=== PATIENT | female | born 1980 | race Caucasian/White ===

== ENCOUNTER 2023-09-05 08:36 | Emergency (ER) | payer OTHER, SELFPAY ==
--- NOTE | ~2023-09-05 | XR_ITS ---
XR knee LT min 4V 09/05/2023 09:05 Indication: Left knee pain Procedure: 4 views left knee Comparison: 09/22/2014 Findings: Moderate osteoarthritis of the left knee. No fracture or traumatic malalignment. No joint e ffusion. No foreign bodies. Impression: 1: Moderate osteoarthritis of the left knee. Reviewed, dictated and finalized at location B. Impression: 1: Moderate osteoarthritis of the left knee.
--- NOTE | 2023-09-05 08:43 | ED.LOWEXIN ---
HPI - Extremity Injury (Lower) General Chief Complaint: Extremity Injury, Lower Stated Complaint: lt knee pain Time Seen by Provider: 09/05/23 09:19 Source: patient and RN notes reviewed Mode of arrival: ambulatory Limitations: no limitations History of Present Illness HPI Narrative: 43-year-old female presents with concern for left knee pain. Reports 3 weeks ago she twisted the knee during a kickball game. Reports it started to feel slightly better and then she went white water rafting in the pain returned. She reports pain at rest, worsening pain when she goes to stand up in his weight-bearing. She reports pain that wakes her up at night. She has been taking 100 mg ibuprofen twice daily and a 1000 mg ibuprofen twice daily. She has been using ice. MD complaint: knee injury Related Data Allergies Allergy/AdvReac Type Severity Reaction Status Date / Time No Known Allergies Allergy Verified 09/05/23 08:38 Review of Systems Review of Systems: CONSTITUTIONAL: Denies malaise, chills, sweats, or fever. CARDIOVASCULAR: Denies chest pain, palpitations, or edema. RESPIRATORY: Denies cough or dyspnea. SKIN: Denies rash or itching, bruising, redness MUSCULOSKELETAL: Reports left knee pain and swelling NEUROLOGIC: Denies numbness, weakness All systems reviewed & are unremarkable except as noted in HPI and below PMFSH Family History Family History (Updated 11/28/13 @ 07:13 by DOCTOR UNKNOWN) Mother Family history of mental disorder Sibling Family history of mental disorder Father Carcinoma of colon Grandparent Carcinoma of colon Family history of lung cancer Family history of dementia Family history of heart disease in male family member before age 55 Social History Social History Smoking status: Never smoker Second hand tobacco smoke exposure: No Alcohol intake: current Comments At time of signature, agree with nursing past medical, surgical, social and family history. There is no relevant family history pertinent to the presenting complaint Exam Narrative: GENERAL: Well-appearing, well-nourished, and in no acute distress. HEAD: Normocephalic, atraumatic. EYES: PERRLA, conjunctivae clear NECK: Supple. CHEST: Speaks in full sentences. No respiratory distress. HEART: Regular rate and rhythm. Normal and equal peripheral pulses. EXTREMITIES: Left knee has gross normal range of motion. No edema or ecchymosis. Lateral tenderness. No open wounds, no skin tenting, no devitalized tissue or atrophy, no trophic changes, no obvious deformity, alignment normal, nearby joints and structures intact. Distal pulses palpable and equal bilaterally, skin warm, dry, pink. Capillary refill less than 3 seconds. SKIN: Warm, dry, no rash. NEURO: Alert and oriented x3. PSYCH: Normal mood and affect Course Course Emergency Course: Patient is aware of diagnosis, understands and agrees to treatment plan. Anticipatory guidance given. Patient agrees to follow-up as directed and is aware of reasons to seek care at the emergency department. Portions of this record may have been created with voice recognition software Level of Care: Express Care Visit Vital Signs Vital signs: Reviewed. MDM - Extremity Injury (Lower) MDM Narrative Medical decision making narrative: Patients injury and pain is consistent with musculoskeletal etiology. No signs of neurological or vascular compromise on exam. Compartments and tissues are soft without signs of compartment syndrome. Pain is felt appropriate for further evaluation on an outpatient basis. Imaging Data My impression: Images reviewed, interpreted by radiologist, agree, see report. Radiologist's impression: XR knee LT min 4V 09/05/2023 09:05 Indication: Left knee pain Procedure: 4 views left knee Comparison: 09/22/2014 Findings: Moderate osteoarthritis of the left knee. No fracture or traumatic malalignment. No joint effusion. No foreign bodies. Impression:
[2023-09-05 08:49] VITALS: BP 116/51; PULSE 81; RESP 16; TEMP 36.7; O2SAT 99
== END 2023-09-05 09:29 | disposition home or self-care (01) ==
PROVIDERS: Emergency Provider Nurse Practitioner; PCP Family Medicine
DX: S89.92XA Unspecified injury of left lower leg, initial encounter (principal); X50.9XXA Other and unspecified overexertion or strenuous movements or postures, initial encounter; Y93.6A Activity, physical games generally associated with school recess, summer camp and children; Z86.16 Personal history of COVID-19
CPT/HCPCS: 73564; 99213; G0463

== ENCOUNTER 2024-06-07 08:00 | Emergency (ER) | payer OTHER, SELFPAY ==
--- NOTE | 2024-06-07 08:04 | ED_ITS ---
HPI - Nausea/Vomiting/Diarrhea General Chief complaint: Back Pain/Injury Stated complaint: vomiting and diarrhea;back pain Time Seen by Provider: 06/07/24 08:04 Source: patient Mode of arrival: ambulatory Limitations: no limitations History of Present Illness HPI Narrative: Patient is a 44-year-old female who presents with vomiting and diarrhea yesterday, hot and cold chills, body aches and back pain. Patient has not had any vomiting or diarrhea today. Has not taken a temperature. Denies congestion, sore throat, ear pain, cough. Has not taken anything for symptoms. Related Data Allergies Allergy/AdvReac Type Severity Reaction Status Date / Time No Known Allergies Allergy Verified 06/07/24 08:11 Review of Systems Review of Systems: All systems reviewed & are unremarkable except as noted in HPI and below Constitutional: Constitutional: Reports chills, Denies fatigue, Denies fever(s), Denies headache(s), Denies malaise and Denies weakness Eyes: Eyes: Denies blurry vision, Denies itchy eyes and Denies loss of vision ENT: Denies otalgia, Denies headache(s), Denies nasal congestion, Denies sinus pain and Denies sore throat Cardiovascular: Cardiovascular: Denies chest pain, Denies irregular heart rhythm and Denies dyspnea Respiratory: Respiratory: Denies cough and Denies dyspnea Gastrointestinal: Gastrointestinal: Denies abdominal pain, Reports diarrhea, R eports nausea and Reports vomiting Musculoskeletal: Musculoskeletal: Reports back pain, Reports myalgias and Denies arthralgias Integumentary/Breasts: Skin/Breast: Denies pruritus and Denies rash Neurologic: Denies headache(s), Denies loss of vision and Denies weakness Psychiatric: Psychiatric: Reports no additional psychiatric complaints Endocrine: Endocrine: Denies fatigue Allergic/Immunologic: Allergic/Immunologic: Denies itchy eyes PMFSH Family History Family History Mother Family history of mental disorder Sibling Family history of mental disorder Father Carcinoma of colon Grandparent Carcinoma of colon Family history of lung cancer Family history of dementia Family history of heart disease in male family member before age 55 Social History Social History Smoking status: Never smoker Second hand tobacco smoke exposure: No Alcohol intake: current Comments At time of signature, agree with nursing past medical, surgical, social and family history. There is no relevant family history pertinent to the presenting complaint. Exam Const: General: cooperative, healthy appearing, comfortable, no acute distress and well nourished Nutritional Appearance: well nourished Orientation/consciousness: patient oriented x3 Limitations: no limitations HENMT: Head: normal to inspection, normocephalic and atraumatic Ears: heari ng grossly normal bilaterally, external ears normal, TM's normal bilaterally, EAC's normal and no periauricular adenopathy Face/Nose/Sinus: Normal external nose present, Normal nasal mucous membranes and turbinates present, normal facial exam, sinuses nontender and face symmetric Face and sinus: normal facial exam, sinuses nontender and face symmetric Mouth: Yes Normal oral and palatal mucosa present, Yes lip normal, Yes tongue normal, Yes Normal salivary glands and ducts present, Yes oropharynx normal and Yes moist mucous membranes Teeth and gingiva: dentition normal Throat: posterior oropharynx normal, tonsils normal and uvula midline Eyes: General: appearance normal, both eyes and all related structures Alignment and Position: alignment normal and position normal Periorbital: periorbital findings normal Eyelids: eyelids normal Pupils: Equal, round and reactive pupils present Neck: Neck: normal visual inspection, full ROM, no lymphadenopathy and supple Chest: Chest palpation & inspection: normal inspection of the chest and normal palpation of entire chest wall Resp: Effort & Inspection: normal respiratory effort and able to speak in complete sentences Auscultation: clear to auscultation bilaterally, no crackles, no rales, no rhonchi and no wheezes Cardio: Rate: regular rate Rhythm: regular rhythm Heart sounds: S1 normal heart sound present and S2 normal heart sound present GI: Inspection: normal to inspection GI Palp: No abdominal tenderness and Yes Soft to palpation Auscultation: normal bowel sounds Skin: General skin exam: normal color and no rashes or lesions noted Neuro: General: patient oriented x3 and moves all extremities Cranial nerves: Yes Equal, round and reactive pupils present Speech: normal speech Gait exam (Neuro): Normal gait present Extrem: General: normal to inspection, full ROM and no edema Psych: Appearance: grossly normal and well kempt Mental Status: mental status grossly normal Speech and movement: Normal speech and movement present Affect: normal affect Attitude: cooperative Thought process: Normal thought process present Course Course Emergency Course: Discharge instructions reviewed with patient, as well as provided in writing per nursing staff. The instructions also include specific and strict return/GO TO THE ER as well as f/u information. All questions have been answered, and the patient deny any further questions with discharge and discharge plan. Portions of this record may have been created with voice recognition software Level of Care: Express Care Visit Vital Signs Vital signs: Vital Signs Temperature 36.7 C 06/07/24 08:14 Pulse Rate 100 06/07/24 08:14 Respiratory Rate 20 06/07/24 08:14 Blood Pressure 111/70 06/07/24 08:14 Pulse Oximetry 99 06/07/24 08:14 Oxygen Delivery Room Air 06/07/24 08:14 Temperature 36.7 C 06/07/24 08:14 Pulse Rate 100 06/07/24 08:14 Respiratory Rate 20 06/07/24 08:14 Blood Pressure 111/70 06/07/24 08:14 Pulse Oximetry 99 06/07/24 08:14 Oxygen Delivery Room Air 06/07/24 08:14 Reviewed MDM - Nausea/Vomiting/Diarrhea MDM Narrative Medical decision making narrative: Pt well hydrated appearing, in no respiratory distress, hemodynamically stable. Recommend supportive care. The patient is stable at time of discharge the clinical impression was discussed and the patient was given the opportunity to ask questions, which were addressed as completely as possible given the information available at present. Anticipatory guidance and return to care precautions were discussed and the importance of primary care follow-up was stressed and encouraged. The patient voiced understanding of the plan, indications to return, and the need for follow-up. Exam findings show no acute concerns or changes Patient is appropriate for outpatient treatment and follow-up. Differential Diagnosis Differential diagnosis: Likely traveler's diarrhea, food poisoning, gastroenteritis, clostridium difficile infection, drug-induced nausea and vomiting, dehydration and other (COVID, influenza) Medical Records Attestation: I reviewed the patient's medical records. Lab Data Attestation: I reviewed the patient's lab results. Labs: Lab Results 06/07/24 Range/Units 08:36 POC Influenza A Ag Negative (Negative) POC Influenza B Ag Negative (Negative) POC SARS CoV-2 Ag Negative (Negative) Discharge Plan Discharge Clinical Impression: Gastroenteritis Patient Disposition: Home, Self-Care Condition: Stable Instructions: Gastroenteritis (ED) Additional Instructions: Stay hydrated. Take small sips of fluid containing electrolytes frequently(Body [place], Gatorade, Powerade, liquid IV). Eat small meals that her very bland including bananas, applesauce, rice, toast, boiled or grilled chicken, soup. Do not eat anything fried, spicy or overly acidic. For pain, you may take: Tylenol 650-1000mg by mouth every 4-6 hours. Do not exceed 4000mg in 24 hours. Advil (Ibuprofen) 600 mg by mouth every 6 hours. Do not exceed 2400mg in 24 hours. 8 AM: Tylenol 11 AM: Ibuprofen 2 PM: Tylenol 5 PM: Ibuprofen 8 PM: Tylenol 11 PM: Ibuprofen 2 AM: Tylenol 5 AM: Ibuprofen You should go to the hospital if you experience return of persistent nausea and vomiting that does not resolve and does not allow you to tolerate any food or fluids, persistent fevers for greater than 2-3 more days, increasing abdominal pain that persists despite medications, persistent diarrhea, dizziness, syncope (fainting), or for any other concerns. Patient Language: [place] Prescriptions: New ondansetron 4 mg tablet,disintegrating 4 mg PO Q6-8H PRN (Reason: nausea and vomiting) Qty: 7 0RF No Action ibuprofen 800 mg tablet 800 mg PO Q6H PRN (Reason: pain) Qty: 30 0RF Follow-up/Referrals: Ciro,MD Kaylin [Primary Care Provider] - 3 Days Stand Alone Forms: Work/School Release IP Time of Disposition: 08:50
--- OUTSIDE RECORDS SUMMARY | 2024-06-07 08:08 | XMS_ITS | Clinical Summary ---
Author Organization [facility] Address [address] [place] [address] Care Team Providers Care Linux Solaris Administrator Name Role Phone Kaylin Tanner MD Primary Care Provider Allergies No known active allergies Medications LORazepam (ATIVAN) 1 MG tablet Take 1 mg by mouth every 6 (six) hours as needed for Anxiety. Active traZODone (DESYREL) 100 MG tablet Take 100 mg by mouth nightly at bedtime. Active methylphenidate CR (CONCERTA) 36 MG tablet Take 36 mg by mouth every morning. Active benzonatate (TESSALON) 100 MG capsule Take 1 capsule (100 mg total) by mouth 2 (two) times daily as needed. 4 Active ondansetron (ZOFRAN-ODT) 4 MG disintegrating tablet Take 1 tablet (4 mg total) by mouth every 8 (eight) hours as needed for Nausea. 20 tablet 4 Active Social History Tobacco Use Types Packs/Day Years Used Date Smoking Tobacco: Never Smokeless Tobacco: Never Tobacco Cessation:Counseling Given: Not Answered Alcohol Use Standard Drinks/Week Comments Not Currently 0 (1 standard drink = 0.6 oz pur e alcohol) Comments Unknown Sex and Gender Information Value Date Recorded Sex Assigned at Not on file Legal Sex Female 8:34 PM CDT Gender Identity Not on file Sexual Orientation Not on file Last Filed Vital Signs Vital Sign Reading Time Taken Comments Blood Pressure 107/59 05/02/2023 9:51 AM COOLING SYSTEM OPERATOR Pulse 63 05/02/2023 9:51 AM COOLING SYSTEM OPERATOR Temperature 36.8 C (98.2 F) 05/02/2023 9:51 AM COOLING SYSTEM OPERATOR Respiratory Rate 18 05/02/2023 9:51 AM COOLING SYSTEM OPERATOR Oxygen Saturation 100% 05/02/2023 9:51 AM COOLING SYSTEM OPERATOR Inhaled Oxygen Concentration - - Weight 113.4 kg (250 lb) 05/02/2023 8:32 AM COOLING SYSTEM OPERATOR Height 175.3 cm (5' 9 ) 05/02/2023 8:32 AM COOLING SYSTEM OPERATOR Body Mass Index 36.92 05/02/2023 8:32 AM COOLING SYSTEM OPERATOR Plan of Treatment Health Maintenance Due Date Last Done Comments Colorectal Cancer Screening Colonoscopy (10 Years) 1979 Annual Physical 1982 Hepatitis C 1997 Cervical Cancer Screening Pap with HPV Testing (Age 30 to 64) Every 5 Years 2009 Mammogram Screening 2019 COVID-19 Vaccine ( season) 2023 06/21/2021, 07/29/2020, 07/08/2020 Influenza Adult (#1) 2024 02/06/2019, 01/15/2017, 01/14/2017, Additional history exists PHQ-2 (Physician [place]) 04/03/2024 Cervical Cancer Screening Pap Smear (Age 30 to 64) Every 3 Years 03/11/2025 03/11/2022 Cervical Cancer Screening with HPV 03/11/2025 DTaP, Tdap and Td Vaccines (3 - Td or Tdap) 02/06/2029 02/06/2019, 11/08/2011, 09/17/2001 Meningococcal Vaccine Aged Out 03/16/2001 No fredy jay eligible based on patient's age to complete this topic Hepatitis B Vaccines Completed 05/20/2010, 03/06/2008, 01/29/2008 HPV Vaccines Aged Out No longer eligi ble based on patient's age to complete this topic Meningococcal B Vaccine Aged Out No l onger eligible based on patient's age to complete this topic Pneumococcal Vaccine: Pediatrics (0 to 5 Years) and At-Risk Patients (6 to 64 Years) Aged Out No longer eligible based on patient's age to complete this topic RSV Immunizations Under 20 Months Aged Out No longer eligible based on patient's age to complete this topic Insurance Care Teams Linux Solaris Administrator Relationship Specialty Start Date End Date Kaylin Tanner MD [address] [facility] [address] [place] [address] PCP - General FAMILY PRACTICE 12/13/21
--- OUTSIDE RECORDS SUMMARY | 2024-06-07 08:09 | XMS_ITS | Clinical Summary ---
Author Organization [facility] Address [address] [place] [address] Care Team Providers Care Customs Inspector Name Role Phone Unavailable Primary Care Provider Unavailabl e Social History Tobacco Use Types Packs/Day Years Used Date Smoking Tobacco: Never Assessed Comments Unknown Sex and Gender Information Value Date Recorded Sex Assigned at Not on file Legal Sex Female 12:03 PM CDT Gender Identity Not on file Sexual Orientation Not on file Plan of Treatment Health Maintenance Due Date Last Done Comments Hepatitis C Virus (HCV) Screening 1979 Hepatitis B Immunization (1 of 3 - 19+ 3-dose series) 1998 Pap Smear 02/27/2000 Cervical Cancer Screening (CCS) 2009 HPV/Cotest 2009 Discussion re Starting/Frequ ency of Mammograms 2019 Influenza Immunization (#1) 2023 02/06/2019 SARS-COV-2 Immunization ( season) 2023 Colonoscopy 02/27/2024 Colorectal Cancer Screening 02/27/2024 Respiratory Syncytial Virus (RSV) Immunization (Adult) (1 - 1-dose 75+ series) 2054 DTaP/Tdap/Td Immunization Discontinued 02/06/2019 TdaP Immunization Completed 02/06/2019 Meningococcal Immunization (ACWY) Aged Out No longer eligible based on patient's age to complete this topic Pneumococcal Immunization Combined Aged Out No longer eligible b ased on patient's age to complete this topic Rotavirus Immunization Aged Out No lo nger eligible based on patient's age to complete this topic
--- OUTSIDE RECORDS SUMMARY | 2024-06-07 08:09 | XMS_ITS | Encounter Summary ---
Author Organization [facility] Address [address] [place] [address] Care Team Providers Care Supervisor Residential Name Role Phone Unavailable Primary Care Provider Unavailabl e Encounter Details Date Type Department Care Team (Late st Contact Info) Description 06/05/2024 External Device Data [facility] ABSTRACTION Provider, Abstract NO ADDRESS ON FILE Social History Tobacco Use Types Packs/Day Years Used Date Smoking Tobacco: Unknown Passive Smoke Exposure: Never Alcohol Use Standard Drinks/Week Comments Yes 5 (1 standard drink = 0.6 oz pur e alcohol) Feeling Safe Answer Date Recorded Are you in a relationship wi th someone who hurts you emotionally and/or physically? Patient unable to answer 10/18/2023 Food Insecurity Answer Date Recorded Social/Environmental Concerns No concerns Transportation Needs Answer Date Record ed Social/Environmental Concerns No concerns Housing Stability Answer Date Recorded Social/Environmental Concerns No concerns Utility Needs Answer Date Recorded Social/Environmental Concerns No concerns Comments No Sex and Gender Information Value Date Recorded Sex Assigned at Not on file Legal Sex Female 2:13 PM CDT Gender Identity Not on file Sexual Orientation Not on file documented as of this encounter Plan of Treatment Not on file documented as of this encounter Visit Diagnoses Not on filedocumented in this encounter
--- OUTSIDE RECORDS SUMMARY | 2024-06-07 08:09 | XMS_ITS | Clinical Summary ---
Author Organization [facility] Address [address] [place] [address] Care Team Providers Care Manager Distribution Name Role Phone Unavailable Primary Care Provider Unavailabl e Medications oxyCODONE (ROXICODONE) 5 mg tabletIndicatio ns:Acute medial meniscus tear of left knee, initial encounter Take 1 Tablet (5 mg) by mouth every 4 hours as needed for Pain. Max Daily Amount: 30 mg 18 Tablet 10/18/2023 9:27 AM CDT 10/18/2023 Active aspirin (ECOTRIN EC) 325 mg Tablet, Delayed Release (E.C.) Take 1 Tablet (325 mg) by mouth daily. 42 Tablet 10/18/2023 9:27 AM CDT 10/18/2023 Active ondansetron (Zofran) 4 mg Tablet Take 1 Tablet (4 mg) by mouth every 8 hours as needed for Nausea/Vomit ing. 30 Tablet 10/18/2023 9:27 AM CDT 10/18/2023 Active docusate sodium (Dulcolax Stool Softener, dss,) 100 mg capsule Take 1 Capsule (100 mg) by mouth 2 times daily. 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 Ancillary Procedure [facility] [address] [facility] [address] [place] [id number] Ion Guevara MD Right knee pain, unspecified chronicity 04/15/2024 10:30 AM HOT SAW OPERATOR Office Visit [facility] [id number] [place] [address] [address] [place] [address] Ion Guevara MD Right knee pain, unspecified chronicity (Primary Dx) 03/15/[address] [place] [address] Ion Guevara MD Referral for Right Knee (Patient has been seen for the Left knee before, and now has a referral for the Right knee and is requesting a call back to schedule the appointment. Her number is [phone]) from Last 3 Months Social History Tobacco Use Types Packs/Day Years Used Date Smoking Tobacco: Unknown Passive Smoke Exposure: Never Tobacco Cessation:Counseling Given: Yes Alcohol Use Standard Drinks/Week Comments Yes 5 [...] Sign Reading Time Taken Comments Blood Pressure 126/78 10/18/2023 9:30 AM CDT Pulse 75 10/18/2023 9:30 AM CDT Temperature 36.7 C (98 F) 10/18/2023 9:30 AM CDT Respiratory Rate 22 10/18/2023 9:30 AM CDT Oxygen Saturation 93% 10/18/2023 9:30 AM CDT Inhaled Oxygen Concentration - - Weight 115.7 kg (255 lb) 10/18/2023 7:15 AM CDT Height 175.3 cm (5' 9 ) 10/18/2023 7:15 AM CDT Body Mass Index 37.66 10/18/2023 7:15 AM CDT Plan of Treatment Health Maintenance Due Date Last Done Comments DIABETES ANNUAL FOOT EXAM 1997 DIABETES MICROALBUMIN ANNUAL SCREEN 1997 LDL CHOLESTEROL ANNUAL 1997 HEPATITIS B VACCINES (1 of 3 - 19+ 3-dose series) 1998 05/20/2010, 03/06/2008, 01/29/2008 DIABETES ANNUAL RETINAL EXAM 07/17/2010 07/17/2009, 07/15/2008, 05/14/2008, Additional history exists BREAST CANCER SCREENING 12/27/2022 12/27/2021, 11/25 COLORECTAL SCREENING 02/27/2024 Colorectal Cancer Screening 02/27/2024 FIT-DNA Q 3 years 02/27/2024 FIT/FOBT Q 1 year 02/27/2024 Flex Sig/CT Colonography Q 5 years 02/27/2024 DIABETES HBA1C Q 6 MONTHS 07/05/2024 01/05/2024 CERVICAL CANCER SCREENING 03/11/2025 03/11/2022 DTAP/TDAP/TD VACCINES (3 - Td or Tdap) 02/06/2029 02/06/2019, 11/08/2011 INFLUENZA VACCINE Completed 03/06/2024, , 02/06/2019, Additional history exists HPV VACCINES Aged Out No longer eligi ble based on patient's age to complete this topic Medical Devices Implanted Type Area Nursing Home Assistant Administrator Device Identifier Shelf Expiration Date Model / Serial / Lot Nexplanon-Left Procedures Procedure Name Priority Date/Time Associated Diagnosis Comments XR KNEE 4+ VW RIGHT Routine 04/15/2024 1 0:44 AM HOT SAW OPERATOR Right knee pain, unspecified chronicity from Last 3 Months Results * XR KNEE 4+ VW RIGHT (04/15/2024 10:44 AM HOT SAW OPERATOR) Anatomical Region Laterality Modality Lower Extremity Computed Radiogr aphy 04/15/2024 10:4 4 AM HOT SAW OPERATOR Narrative 04/15/2024 12:39 PM HOT SAW OPERATOR EXAMINATION: XR KNEE 4+ VW RIGHT, 3 view left knee DATE: 04/15/2024 10:44 AM HISTORY: Right knee pain COMPARISON: Radiograph dated 10/12/2023 FINDINGS: There is mild narrowing of the medial compartment bilaterally Tricompartmental osteophytes are again seen bilaterally. There is no acute fracture. There is moderate right knee joint effusion. DICTATION LOCATION: Location [address] [place] [address] Procedure Note Cleveland Chou MD - 04/15/2024 EXAMINATION: XR KNEE 4+ VW RIGHT, 3 view left knee DATE: 04/15/2024 10:44 AM HISTORY: Right knee pain COMPARISON: Radiograph dated 10/12/2023 FINDINGS: There is mild narrowing of the medial compartment bilaterally Tricompartmental osteophytes are again seen bilaterally. There is no acute fracture. There is moderate right knee joint effusion. DICTATION LOCATION: Location [address] [place] [address] Ion Guevara MD DIAGNOSTIC IMAGING ORDERABLES Final Result from Last 3 Months Insurance [employer] For more information, please contact: [phone] * Full Code (Latest Code Status on File) Date Activated Date Inactivated Comments 10/18/2023 6:57 AM 10/18/2023 12:08 PM
--- OUTSIDE RECORDS SUMMARY | 2024-06-07 08:09 | XMS_ITS | Clinical Summary ---
Author Organization [address] Address [address] [id number] Care Team Providers Care Client Services Vice President Name Role Phone Kaylin Tanner MD Primary Care Provi josefina Allergies No known active allergies Medications LORazepam (ATIVAN) 1 mg tablet Take 1 tablet (1 mg total) by mouth 3 (three) times a day as needed 09/06/2021 Active clomiPRAMINE (ANAFRANIL) 25 mg capsule 02/16/2024 Active ergocalciferol (VITAMIN D) 50,000 unit capsule 12/28/2023 Active methylphenidate ER (CONCERTA) 54 mg CR tablet Take 1 tablet (54 mg total) by mouth every morning 02/15/2024 Active ibuprofen (ADVIL,MOTRIN) 600 mg tabletIndicatio ns:Acute pain of right knee Take 1 tablet (600 mg total) by mouth every 8 (eight) hours as needed for pain (pain) 30 tablet 1 03/06/2024 Active Active Problems Problem Noted Date Diagnosed Date Microcytic anemia 05/10/2022 Acute pancreatitis after end oscopic retrograde cholangiopancreatography (ERCP) 05/05/2022 Assessment & Plan (05/16/2022 8:58 AM MINING ANALYST): Discharge summary, CBC, CMP, iron panel reviewed from her hospital stay Well adult exam 09/14/2021 Overview (09/14/2021): Encouraged a healthy diet, and regular physical activity to her level Wear sun screen, seat belts No texting/drinking and driving Health Maintenance: Last PAP: 04/2017-neg Last mammogram:ordered Last Tdap: up to date Last Flu: encouraged Last COVID: up to date Assessment & Plan (09/14/2021 10:06 AM CDT): Encouraged a healthy diet, and regular physical activity to her level Wear sun screen, seat belts No texting/drinking and driving Health Maintenance: Last PAP: 04/2017-neg Last mammogram:ordered Last Tdap: up to date Last Flu: encouraged Last COVID: up to date Grief 09/14/2021 Assessment & Plan (09/14/2021 10:01 AM CDT): With the loss of her partner Continue to follow with her psychiatrist and psychologist Continue her current regimen for now I encouraged her to look at a support group for survivors of suicide-she can look at the [facility] or online I will check in on her in 1 week Update me with any questions or concerns Class 2 obesity due to exces s calories with body mass index (BMI) of 36.0 to 36.9 in adult 09/14/2021 Assessment & Plan (03/06/2024 10:34 AM MINING ANALYST): Chronic, improving BMI Follow-up includes: nutrition counseling. Assessment & Plan (09/14/2023 10:34 AM CDT): BMI Follow-up includes: exercise counseling and education provided. Assessment & Plan (05/16/2022 8:45 AM MINING ANALYST): BMI Follow-up includes: nutrition counseling. Assessment & Plan (09/14/2021 10:02 AM CDT): BMI Follow-up includes: nutrition counseling. Severe episode of recurrent major depressive disorder, without psychotic features 11/19/2019 Assessment & Plan (05/16/2022 8:57 AM MINING ANALYST): Chronic, both side effect now of muscle twitching/movement changes Reviewed that this could be a possible side effect of her Rexulti I have encouraged her to call her psychiatrist. She may come off the medication or have a medication added to her regimen to help with his possible side effect Update me after she talks to her psychiatrist Call for questions or concerns Assessment & Plan (09/14/2021 9:55 AM CDT): No thoughts of self-harm Continue new to follow with her psychiatrist Continue to follow with her psychologist Continue her current regimen Update me with any changes or concerns Call for questions Assessment & Plan (11/19/2019 3:21 PM CDT): Stable Continue current regimen New referral placed Call for questions or concerns Anxiety 11/19/2019 Assessment & Plan (09/14/2021 9:54 AM CDT): Continue new to follow with her psychiatrist Continue to follow with her psychologist Continue her current regimen Update me with any changes or concerns Call for questions Assessment & Plan (11/19/2019 3:20 PM CDT): Stable Continue current regimen New referral placed Call for questions or concerns Attention deficit disorder (ADD) without hyperac tivity 11/19/2019 Assessment & Plan (09/14/2021 9:55 AM CDT): Continue to follow with her psychiatrist Continue her current regimen Assessment & Plan (11/19/2019 3:21 PM CDT): Stable Continue current regimen New referral placed Call for questions or concerns Dysfunctional uterine bleeding 11/27/2017 Migraine 05/10/2016 Resolved Problems Problem Noted Date Diagnosed Date Resolved Date Transaminitis 04/29/2022 12/14/2022 Calculus of gallbladder with out cholecystitis without obstruction 04/29/2022 12/14/2022 Acute cystitis without hematuria 04/28/2022 12/14/2022 Abdominal pain 04/28/2022 12/14/2022 Choledocholithiasis 04/28/2022 12/15/19 23 Overview (04/29/2022): Added automatically from request for surgery [id number] Colitis 12/14/2022 Encounters Date Type Department Care Team Description 04/02/2024 Telephone [facility] Family Medicine [address] [phone] Kaylin Tanner MD Referral Request 03/14/2024 Orders Only [facility] Obstetrical Gynecology [address] [place] [phone] Esperanza Martin MD from Last 3 Months Immunizations Immunization Administration Dates Next Due Anthrax 03/02/2005 Flucelvax Influenza Quad 02/06/2019 Hep A, Adult 09/17/2001,03/16/2001 Hep B Vaccine 05/20/2010,03/06/2008,01/29/2008 IPV 03/16/2001 Influenza LAIV (Nasal) 01/06/2014,2012,12/15/2011,01/13,01/29/2008,03/02/2007,12/09/2005 ,04/30/2004 Influenza, Split 12/25/2009,02/23/2005 Influenza, Trivalent, Cell Culture-based MDCK, Preservative Free, Antibiotic Free, Intramuscular 02/06/2019 Influenza, Trivalent, IM (MDV) 01/14/2017 Influenza, Trivalent, Preser vative Free, Intramuscular 03/06/2024 Influenza, Unspecified 03/14/2023(Deferr ed: Patient Refused),01/01/2023(Deferred: Patient Refused),01/01/2022(Deferred: Patient Refused),01/01/2022(Deferred: Patient Refused),01/01/2022(Deferred: Patient Refused),01/01/2022(Deferred: Patient Refused),12/01/2021(Deferred: Patient Refused),09/14/2021(Deferred: Patient Refused),01/01/2021(Deferred: Patient Refused),01/01/2021(Deferred: Patient Refused),01/01/2021(Deferred: Patient Refused),01/01/2021(Deferred: Patient Refused),01/01/2021(Deferred: Patient Refused),01/02/2020(Deferred: Patient Refused),01/02/2020(Deferred: Patient Refused),02/06/2019,01/15/2017 Influenza, Whole 02/18/2003,02/19/2002, 1 MMR 01/29/2008,03/23/2001 Meningococcal Polysaccharide (Menomune) 03/16/2001 PPD TEST 03/30/2022,11/28/2005,03/16/2001 Pfizer SARS-CoV-2 Monovalent Vaccination (12+ Yrs) PURPLE 06/21/2021,07/29/2020,07/08/2020 Smallpox 03/18/2005 Td, adsorbed 09/17/2001 Tdap 02/06/2019,11/08/2011 Typhoid Inactivated 02/23/2005 Surgical History Surgery Date Site/Laterality Comments US ABDOMEN COMPLETE W LIVER DOPPLER (C) 12/05/2017 Right CHOLECYSTECTOMY KNEE ARTHROSCOPY 04/03/2023 - 04/02/2024 Left Medical History Medical History Date Comments Migraine 05/10/2016 Anxiety 11/19/2019 Attention deficit disorder (ADD) without hyperac tivity 11/19/2019 Depression, major, recurrent 11/19/2019 Pancreatitis Family History Medical History Relation Name Comments Breast cancer Mother's Sister at age 50's Relation Name Status Comments Mother's Sister at age 50's Alive Social History Tobacco Use Types Packs/Day Years Used Date Smoking Tobacco: Never Smokeless Tobacco: Never Tobacco Cessation:Counseling Given: Not Answered Alcohol Use Standard Drinks/Week Comments Not Currently 0 (1 standard drink = 0.6 oz pur e alcohol) AUDIT-C Answer Date Recorded Q1: How often do you have a drink containing alc ohol? 2-3 times a week 03/06/2024 Q2: How many drinks containi ng alcohol do you have on a typical day when you are drinking? 1 or 2 03/06/2024 Q3: How often do you have si x or more drinks on one occasion? Never 03/06/2024 PHQ-2 Answer Date Recorded PHQ-2 Total Score (If total score is 3 or more points, staff should administer the PHQ-9) 2 03/06/2024 PHQ-9 Answer Date Recorded PHQ-9 Total Score 4 03/06/2024 Personal Safety Answer Date Recorded Have you ever been in or are you currently in a harmful physical or emotional relationship or is someone making you feel afraid or unsafe? Denies 07/30/2023 Comments No Sex and Gender Information Value Date Recorded Sex Assigned at Not on file Legal Sex Female 10:03 AM MINING ANALYST Gender Identity Not on file Sexual Orientation Not on file Obstetrics History Para Term AB IAB SAB Ectopic Multiple Livin g Live Births 3 3 3 3 Date Outcome GA Total Labor Labor/2nd/3rd Weight Sex Type Anes PTL Heydi A1 A5 Name Clin Term Vag-Spo nt Term Vag-Spo nt Term Vag-Spo nt Last Filed Vital Signs Vital Sign Reading Time Taken Comments Blood Pressure 102/80 03/06/2024 10:17 AM MINING ANALYST Pulse 106 03/06/2024 10:51 AM MINING ANALYST Temperature 36.4 C (97.6 F) 03/06/2024 10:17 AM MINING ANALYST Respiratory Rate 12 03/06/2024 10:1 7 AM MINING ANALYST Oxygen Saturation 97% 03/06/2024 10: 17 AM MINING ANALYST Inhaled Oxygen Concentration - - Weight 111.4 kg (245 lb 9.6 oz) 024 10:17 AM MINING ANALYST Height 175.3 cm (5' 9 ) 03/06/2024 10:1 7 AM MINING ANALYST Body Mass Index 36.27 03/06/2024 10:17 AM MINING ANALYST Plan of Treatment Health Maintenance Due Date Last Done Comments Breast Cancer Screening-Mammogram 12/27/2022 12/27/2021, 11/25/2021 Regular Well Visit/Exam 18-64 03/11/2023 03/11/2022, 09/14/2021 Covid-19 Vaccine ( season) 2023 06/21/2021, 06/21/2021, 07/29/2020, Additional history exists Depression Screening 03/06/2025 03/06/2024, 03/06/2024, 09/14/2023, Additional history exists Cervical Cancer Screening 03/11/2027 03/11/2022 DTaP/Tdap/Td Vaccine (3 - Td or Tdap) 02/06/2029 02/06/2019, 11/08/2011, 09/17/2001 Colon Cancer Screening-Colonoscopy 05/25/2033 05/25/2023 Hepatitis B Screening Completed 05/20/2010 , 03/06/2008, 01/29/2008 Hepatitis C Screening Completed 04/29/2022, 022 Influenza Vaccine Completed 03/06/2024, , 02/06/2019, Additional history exists HPV Vaccines Aged Out No longer eligi ble based on patient's age to complete this topic Pneumococcal vaccine <65 Aged Out No longer eligible based on patient's age to complete this topic Procedures Procedure Name Priority Date/Time Associated Diagnosis Comments COLONOSCOPY Routine 05/25/2023 HEPATITIS PANEL, ACUTE Routine 04/29/2022 10:55 AM MINING ANALYST PAP AND HIGH RISK HPV, REFLEX TO GENOTYPING Routine 03/11/2022 11:27 AM MINING ANALYST Dysfunctional uterine bleeding Encounter for annual routine gynecological examination DIAGNOSTIC MAMMOGRAM BILATERAL W BRI Schedule Routine, Read Routine (OP Routine) 12/27/2021 2:03 PM CDT Abnormal mammogram from Last 3 Months or Most Recently Relevant to Health Maintenance Results * COLONOSCOPY (05/25/2023) Scribed Colonoscopy Normal Historical Provider HEALTH MAINTENANCE Final Result * Hepatitis panel, acute (04/29/2022 10:55 AM MINING ANALYST) Hep A IgM Nonreactive Nonreactive JERRY Comment: Interpretive Data: If Hep A IgM Ab is reported as Equivocal, a new sample should be drawn in two weeks for testing. Current interpretive data was last revised on 19. Hep B core IgM Nonreactive Nonreactive JERRY Comment: Interpretive Data If HepB Core IgM Ab is reported as Equivocal, a new sample should be drawn in two weeks for testing. Current interpretive data was last revised on 19. Hep C Ab Nonreactive Nonreactive JERRY Comment: Interpretive Data Nonreactive: Antibodies to HCV not detected. Does NOT exclude the possibility of recent exposure to HCV. Equivocal: Equivocal for HCV antibodies. Supplemental molecular testing will be automatically performed to determine infection status in accordance with current CDC screening recommendations. Reactive: Positive for HCV antibodies. This may represent current or past HCV infection. Supplemental molecular testing will be automatically performed to determine current infection status in accordance with current CDC screening recommendations. Interpretive data was last revised on 2019. HepBsAg Nonreactive Nonreactive JERRY Blood 04/29/2022 10:5 5 AM MINING ANALYST 04/29/2022 11:16 AM MINING ANALYST Angeles De La Cruz NP LAB MICROBIOLOGY - GENERAL HAYDE KAY Final Result JERRY [address] [facility] Department [place] [address] * Pap and High Risk HPV, reflex to Genotyping (03/11/2022 11:27 AM MINING ANALYST) Thin prep (Pap test) 03/11/2022 11:27 AM MINING ANALYST 03/11/2022 11:27 AM MINING ANALYST Narrative PATHOLOGY [facility] - 03/16/2022 3:57 PM MINING ANALYST [facility] Department of Pathology [address] [place] [id number] Final Report with Addendum Note to Patients: This report may contain a detailed description of human tissue sent by a health care provider to the laboratory for pathologic evaluation. The content of this report is essential for diagnosis and may provide important critical findings. This information may be unfamiliar to patients to review without a medical professional present. It is advised that the patient review this report in the presence of a health care provider who can answer questions and explain the details. Patient Name: KHAI LAST Address: [address] [place] [id number]- Gender: F : 1980 (Age: 42) Service: Laboratory Location: [facility] #: [id number] Patient Type: [facility] SPECIMEN Taken: 03/11/2022 Received: 03/11/2022 Accessioned:: 03/14/2022 Reported: 03/16/2022 Physician(s): Tamara Martin M.D. [facility] Diagnosis: Source of Specimen: SCREENING THIN PREP IMAGED PAP w/ HPV Specimen Adequacy: - Specimen satisfactory for interpretation; endocervical/transformation zone component absent or insufficient General Category: - Negative for intraepithelial lesion or malignancy Interpretation/Results: - Fungal organisms present, morphologically consistent with renata species JOHN Brooks(ASCP)JOHN Bhandari(ASCP) Report Electronically Reviewed and Signed Out By KACY BhandariASCP) 03/16/2022 15:57:28Addenda: HPV Test Interpretation NEGATIVE for types 16, 18, 31, 33, 35, 39, 45, 51, 52, 56, 58, 59, 66 and 68. Test performed utilizing Gen-Probe Aptima assay. JOHN Bhandari(ASCP)Report Electronically Reviewed and Signed Out By KACY BhandariASC) 03/15/2022 11:40:19 Specimen(s) Received: A: SCREENING THIN PREP IMAGED PAP w/ HPV Clinical History: Last Menstrual Period: 02/24/22 Menstrual History: Previous Abnormal Pap: 04/17/17 unsatisfactory Clinical History: dysfunctional uterine bleeding The Pap test is a screening test used to aid in the detection of cervical cancer and its precursors. It should not be the sole means by which malignant and premalignant lesions are diagnosed. Both false negative and false positive results may occur. It also has poor sensitivity for the detection of endometrial lesions and should not be used to evaluate suspected endometrial abnormalities. For these reasons it is most important to obtain Pap tests at regular intervals. The performance characteristics of some immunohistochemical stains, fluorescence in-situ hybridization tests and immunophenotyping by flow cytometry cited in this report (if any) were determined by the Surgical Pathology Department at [facility] as part of an ongoing quality control chemist program and in compliance with federally mandated regulations drawn from the Clinical Laboratory Improvement Act of 1988 (CLIA '88). Some of these tests rely on the use of analyte specific reagents and are subject to specific labeling requirements by the US Food and Drug Administration. Such diagnostic tests may only be performed in a facility that is certified by the Department of Health and Human Services as a high complexity laboratory under CLIA '88. The FDA has determined that such clearance or approval is not necessary. This test is used for clinical purposes. It should not be regarded as investigational or for research. Nevertheless, federal rules concerning the medical use of analyte specific reagents require that the following disclaimer be attached to the report: This test was developed and its performance characteristics determined by the Surgical Pathology Department [facility]. It has not been cleared or approved by the U. S. Food and Drug Administration. Esperanza Martin MD LAB CYTOLOGY ORDERABLES Fi nal Result PATHOLOGY [facility] * DIAGNOSTIC MAMMOGRAM BILATERAL W BRI (12/27/2021 2:03 PM CDT) Anatomical Region Laterality Modality Breast Bilateral Mammography 12/27/2021 2:42 PM CDT Impressions 12/27/2021 2:48 PM CDT 1. A 5 mm oval hypoechoic mass with circumscribed margins is confirmed at the 9 o'clock position of the right breast 5 cm from the nipple. This may represent a benign finding such as a fibroadenoma. Follow-up is recommended in 6 months to document stability. 2. A 7 mm oval mass is confirmed at the 8:30 o'clock position of the right breast 9 cm from the nipple, probably representing a benign complicated cyst. Follow-up is recommended in 6 months to document stability. 3. Additional asymmetries in the right breast are sonographically occult, but also probably benign. Follow-up is recommended in 6 months to document stability. 4. The finding of concern in the outer left breast at posterior depth corresponds to a benign intramammary lymph node. This requires no additional specific workup or follow-up. Annual screening mammography of the left breast recommended in 12 months. BIRADS: 3 - Probably Benign I discussed the findings and recommendations with the patient at the time of the examination. THIS IS AN ELECTRONICALLY VERIFIED FINAL REPORT 12/27/2021 2:48 PM - Electronically signed by James Jacobo M.D. RL: SHAKIRA Report ID: [id number] Reading Location: [facility] 12/27/2021 2:48 PM CDT EXAM DESCRIPTION: US BREAST BILATERAL LIMITED; DIAGNOSTIC MAMMOGRAM BILATERAL W BRI REASON FOR STUDY: 41-year-old woman comes in today for evaluation of suspicious findings in both breasts seen on recent baseline screening mammogram. COMPARISON: Screening mammogram dated 11/25/2021. FINDINGS: CC and MLO spot compression and LM digital breast tomosynthesis of both breasts with C view was performed. Targeted sonographic examination of both breasts was also performed with real-time grayscale images and color Doppler. FINDINGS: MAMMOGRAPHIC FINDINGS: DENSITY: There are scattered areas of fibroglandular density. BREASTS: There is a small mass at approximately the 9 o'clock position of the right breast 4-5 cm from the nipple, measuring 6 mm. There is also a possible small asymmetry at the 9 o'clock position of the right breast 8 cm from the nipple. At the 9 o'clock to 10 o'clock position of the right breast, 10-14 cm from the nipple, are 2 small possible masses with obscured margins, measuring 4 mm and 5 mm respectively. None of these findings demonstrate associated microcalcifications or architectural distortion. A small oval mass with circumscribed margins is confirmed at approximately the 3 o'clock position of the left breast 13 cm from the nipple, measuring approximately 8 mm. No associated architectural distortion or suspicious microcalcifications. ULTRASOUND FINDINGS: Targeted sonographic examination of the right breast at the 9 o'clock position 5 cm from the nipple demonstrates an oval hypoechoic mass with circumscribed margins that is wider than tall, and measures 5 x 3 x 5 mm. There is no posterior acoustic enhancement or shadowing, and no internal blood flow seen on color Doppler. At the 8:30 o'clock position of the right breast 9 cm from the nipple is an oval mass with circumscribed margins that is wider than taller and measures 5 x 2 x 7 mm. The mass has a mixed hypoechoic and anechoic internal echo pattern, no posterior acoustic enhancement or shadowing, and no internal blood flow on color Doppler. Targeted sonographic examination of the left breast at the 2:30 o'clock position 12-13 cm from the nipple demonstrates a benign intramammary lymph node, corresponding to the mammographic finding of concern. us Kaylin Tanner MD IMG MAMMO PROCEDURE S Final Result from Last 3 Months or Most Recently Relevant to Health Maintenance Insurance [facility] General acute hospital [facility] Advance Directives For more information, please contact: [phone] * Full Code (Latest Code Status on File) Date Activated Date Inactivated Comments 05/05/2022 10:05 PM 05/07/2022 3:23 PM * Full Code Date Activated Date Inactivated Comments 05/05/2022 7:46 PM 05/05/2022 10:05 PM * Full Code Date Activated Date Inactivated Comments 04/30/2022 7:21 AM 05/02/2022 9:15 PM * Full Code Date Activated Date Inactivated Comments 04/29/2022 1:32 AM 04/30/2022 7:21 AM * Full Code Date Activated Date Inactivated Comments 04/28/2022 6:06 PM 04/29/2022 1:32 AM Care Teams Client Services Vice President Relationship Specialty Start Date End Date Kaylin Tanner MD [address] [place] [address] PCP - General Family Medicine 11/19/19
--- OUTSIDE RECORDS SUMMARY | 2024-06-07 08:09 | XMS_ITS | Referral Summary ---
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 Name Role Phone Kaylin Tanner MD Primary Care Provi josefina Encounters Date Type Department Care Team Description 04/02/2024 Telephone [facility] Family Medicine [address] [phone] Kaylin Tanner MD Referral Request 03/14/2024 Orders Only [facility] Obstetrical Gynecology [address] [place] [phone] Esperanza Martin MD from Last 3 Months Allergies No known active allergies Medications LORazepam [...] 05/05/2022 Assessment & Plan (05/16/2022 8:58 AM WEB UI DEVELOPER): Discharge summary, CBC, CMP, iron panel reviewed [...] survivors of suicide-she can look at the IPXI or online I will check in on her in 1 week Update me with any questions or concerns Class 2 obesity due to exces s calories with body mass index (BMI) of 36.0 to 36.9 in adult 09/14/2021 Assessment & Plan (03/06/2024 10:34 AM WEB UI DEVELOPER): Chronic, improving BMI Follow-up includes: nutrition counseling. Assessment & Plan (09/14/2023 10:34 AM CDT): BMI Follow-up includes: exercise counseling and education provided. Assessment & Plan (05/16/2022 8:45 AM WEB UI DEVELOPER): BMI Follow-up includes: nutrition counseling. Assessment & Plan (09/14/2021 10:02 AM CDT): BMI Follow-up includes: nutrition counseling. Severe episode of recurrent major depressive disorder, without psychotic features 11/19/2019 Assessment & Plan (05/16/2022 8:57 AM WEB UI DEVELOPER): Chronic, both side effect now of muscle [...] (04/29/2022): Added automatically from request for surgery [id number] Colitis 12/14/2022 Immunizations Immunization Administration Dates Next Due Anthrax [...] adsorbed 09/17/2001 Tdap 02/06/2019,11/08/2011 Typhoid Inactivated 02/23/2005 Social History Tobacco Use Types Packs/Day Years [...] on file Legal Sex Female 10:03 AM WEB UI DEVELOPER Gender Identity Not on file Sexual Orientation Not on file Last Filed Vital Signs Vital Sign Reading Time Taken Comments Blood Pressure 102/80 03/06/2024 10:17 AM WEB UI DEVELOPER Pulse 106 03/06/2024 10:51 AM WEB UI DEVELOPER Temperature 36.4 C (97.6 F) 03/06/2024 10:17 AM WEB UI DEVELOPER Respiratory Rate 12 03/06/2024 10:1 7 AM WEB UI DEVELOPER Oxygen Saturation 97% 03/06/2024 10: 17 AM WEB UI DEVELOPER Inhaled Oxygen Concentration - - Weight 111.4 kg (245 lb 9.6 oz) 024 10:17 AM WEB UI DEVELOPER Height 175.3 cm (5' 9 ) 03/06/2024 10:1 7 AM WEB UI DEVELOPER Body Mass Index 36.27 03/06/2024 10:17 AM WEB UI DEVELOPER Plan of Treatment Not on file Procedures Procedure Name Priority Date/Time Associated Diagnosis Comments COLONOSCOPY Routine 05/25/2023 HEPATITIS PANEL, ACUTE Routine 04/29/2022 10:55 AM WEB UI DEVELOPER PAP AND HIGH RISK HPV, REFLEX TO GENOTYPING Routine 03/11/2022 11:27 AM WEB UI DEVELOPER Dysfunctional uterine bleeding Encounter for annual routine gynecological examination DIAGNOSTIC MAMMOGRAM BILATERAL W BRI Schedule Routine, Read Routine (OP Routine) 12/27/2021 2:03 PM CDT Abnormal mammogram from Last 3 Months or Most Recently Relevant to Health Maintenance Results * COLONOSCOPY (05/25/2023) Scribed Colonoscopy Normal Historical Provider HEALTH MAINTENANCE Final Result * Hepatitis panel, acute (04/29/2022 10:55 AM WEB UI DEVELOPER) Hep A IgM Nonreactive Nonreactive JERRY Comment: [...] on 19. Hep C Ab Nonreactive Nonreactive [facility] Comment: Interpretive Data Nonreactive: Antibodies to HCV [...] last revised on 2019. HepBsAg Nonreactive Nonreactive [facility] Blood 04/29/2022 10:5 5 AM WEB UI DEVELOPER 04/29/2022 11:16 AM WEB UI DEVELOPER Angeles De La Cruz NP LAB MICROBIOLOGY - GENERAL HAYDE KAY Final Result [facility] [address] [facility] Department [place] [address] * Pap and High Risk HPV, reflex to Genotyping (03/11/2022 11:27 AM WEB UI DEVELOPER) Thin prep (Pap test) 03/11/2022 11:27 AM WEB UI DEVELOPER 03/11/2022 11:27 AM WEB UI DEVELOPER Narrative PATHOLOGY [facility] - 03/16/2022 3:57 PM WEB UI DEVELOPER [facility] Department of Pathology [address] [place], [place] [id number] Final Report with Addendum Note to Patients: [...] the details. Patient Name: KHAI LAST Address: [address] [place] [phone] Gender: F : 1980 (Age: 42) Service: Laboratory Location: [facility] #: [id number] Patient Type: [facility] SPECIMEN Taken: 03/11/2022 Received: 03/11/2022 Accessioned:: 03/14/2022 Reported: 03/16/2022 Physician(s): Tamara Martin M.D. [facility] Diagnosis: Source of Specimen: SCREENING THIN PREP IMAGED PAP w/ HPV Specimen Adequacy: - Specimen satisfactory for interpretation; endocervical/transformation zone component absent or insufficient General Category: - Negative for intraepithelial lesion or malignancy Interpretation/Results: - Fungal organisms present, morphologically consistent with renata species JOHN Brooks(ASCP)JOHN Bhandari(ASCP) Report Electronically Reviewed and Signed Out By KACY BhandariASC) 03/16/2022 15:57:28Addenda: HPV Test Interpretation NEGATIVE for [...] determined by the Surgical Pathology Department at [facility] as part of an ongoing supervisor type disk quality control program and in compliance with federally mandated [...] characteristics determined by the Surgical Pathology Department [facility]. It has not been cleared or approved by the [place]. Food and Drug Administration. Esperanza Martin MD LAB CYTOLOGY ORDERABLES Fi nal Result PATHOLOGY [facility] * DIAGNOSTIC MAMMOGRAM BILATERAL W BRI [...] James Jacobo M.D. RL: SHAKIRA Report ID: [id number] Reading Location: NANCI Rayo 12/27/2021 2:48 PM [...] corresponding to the mammographic finding of concern. Kaylin Tanner MD IMG MAMMO PROCEDURE S Final Result from Last 3 Months or Most Recently Relevant to Health Maintenance Insurance [facility] Advance Directives For more information, please contact: [phone] * Full Code (Latest Code Status on [...] 6:06 PM 04/29/2022 1:32 AM Care Teams Quail Farmer Relationship Specialty Start Date End Date Kaylin Tanner MD [address] [place] [address] PCP - General Family Medicine 11/19/19
[2024-06-07 08:14] VITALS: BP 111/70; PULSE 100; RESP 20; TEMP 36.7; O2SAT 99
[2024-06-07 08:38] LABS: EDCOVIDSCREEN Negative (Negative); EDINFLUASCREEN Negative (Negative); EDINFLUBSCREEN Negative (Negative)
== END 2024-06-07 08:51 | disposition home or self-care (01) ==
PROVIDERS: Emergency Provider Nurse Practitioner Family; PCP Family Medicine
DX: K52.9 Noninfective gastroenteritis and colitis, unspecified (principal); Z20.822 Contact with and (suspected) exposure to COVID-19
CPT/HCPCS: 87426; 87804; 99213; G0463